=== PATIENT | female | born 1965 | race African-American/Black ===

== ENCOUNTER 2024-01-19 15:33 | Outpatient (CLI) | payer OTHER, SELFPAY ==
--- NOTE | ~2024-01-19 | US_ITS ---
Pelvic ultrasound. Clinical History: Pelvic pain Technique: Realtime transabdominal and transvaginal scanning of the pelvis was performed. Color flow Doppler and Doppler spectral analysis were performed. Findings: The uterus is retroverted.. The endometrial stripe has a thickness of 2 mm. No focal mass is identified. Trace fluid present in the endometrial cavity. The right ovary measures 2.6 x 2.0 x 2.7 cm. No significant right ovarian or adnexal mass is seen. The left ovary measures 1.5 x 2.5 x 1.6 cm. No significant left ovarian or adnexal mass is seen. There is trace free fluid in the cul de sac. Impression: No significant abnormality seen. Reviewed, dictated and finalized at location . Impression: No significant abnormality seen.
[2024-01-19 15:59] LABS: Hemoglobin 12.6 g/dL (12.0-15.0); Mean Corpuscular HGB Conc 32.3 g/dl (32-36); Mean Corpuscular Hemoglobin 31.4 pg (26-34); Mean Corpuscular Volume 97.3 fl (80-100); Mean Platelet Volume 9.1 fl (7.4-10.4); Platelet Count Result 200 k/mm3 (150-375); Red Blood Count 4.01 M/mm3 (4.2-5.4); Red Cell Distribution Width 13.8 % (11.5-14.5)
[2024-01-19 16:25] LABS: Alanine Aminotransferase 20 U/L (6-35); Albumin Level 4.4 g/dL (3.5-5.1); Alkaline Phosphatase 61 U/L (38-126); Anion Gap 5 mmol/L (4-12); Aspartate Amino Transferase 29 U/L (14-36); Bilirubin,Total 0.5 mg/dL (0.2-1.3); Blood Urea Nitrogen 17 mg/dL (7-17); Calcium 9.4 mg/dL (8.4-10.2); Carbon Dioxide 23 mmol/L (22-30); Chloride 108 mmol/L (98-107); Cholesterol 226 mg/dL (0-200); Estimated Glomerular Filt Rate > 60; Glucose 147 mg/dL (65-110); HDL Direct 59 mg/dL; Sodium 136 mmol/L (137-145); Triglycerides 303 mg/dL (<150)
[2024-01-19 16:36] LABS: LDL Cholesterol Direct 102 mg/dL
[2024-01-19 16:45] LABS: Vitamin D 25 Hydroxy 23.8 ng/mL
[2024-01-19 21:31] LABS: Hemoglobin A1C 5.5 % (<5.7)
== END 2024-01-19 15:34 | disposition home or self-care (01) ==
LOC: ANHIMG 15:35
PROVIDERS: Visit Provider Obstetrics & Gynecology Gynecology
DX: R10.32 Left lower quadrant pain (principal); Z01.419 Encounter for gynecological examination (general) (routine) without abnormal findings
CPT/HCPCS: 36415; 76830; 76856; 80053; 80061; 82306; 82607; 83036; 84443; 85027